=== PATIENT | male | born 1965 | race African-American/Black ===

== ENCOUNTER 2017-05-18 10:57 | Emergency (ER) | payer SELFPAY ==
[2017-05-18] MEDS ORDERED: Acetaminophen TAB* 325 MG PO ONE (11:37)
[2017-05-18] MEDS ORDERED: Tetan/Diph/Pertus SYR(Tdap)* 0.5 ML SYR(BOOSTRIX) use SYR IM ONE (11:37)
[2017-05-18 12:35] VITALS: BP 159/84
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
== END 2017-05-18 11:54 | disposition home or self-care (01) ==
LOC: ED 10:57
DX: S00.01XA Abrasion of scalp, initial encounter (principal); W22.8XXA Striking against or struck by other objects, initial encounter; Y92.9 Unspecified place or not applicable; Z87.891 Personal history of nicotine dependence
CPT/HCPCS: 90715; 99282; A9270-GY